=== PATIENT | female | born 1980 | race Caucasian/White ===

== ENCOUNTER 2017-11-07 10:10 | Emergency (ER) | payer OTHER ==
[2017-11-07] MEDS ORDERED: ATIVAN1 M1 PO (12:35)
--- NOTE | 2017-11-07 12:36 | ED GENERAL ADULT ---
History of Present Illness General Chief Complaint: General Adult Stated Complaint: MEDICATION REFILL Source: patient Exam Limitations: no limitations Vital Signs & Intake/Output Vital Signs & Intake/Output Vital Signs Date Time Temp Pulse Resp B/P B/P Pulse O2 O2 Flow FiO2 Mean Ox Delivery Rate 11/07 1023 96.1 103 20 145/94 97 Room Air Allergies Uncoded Allergies: HORMONES (UNKNOWN 11/07/17) STEROIDS (UNKNOWN 11/07/17) Reconcile Medications LORazepam (Ativan) 1 MG TAB 1 TAB PO BID anxiety Triage Note: PT TO ED FOR MED REFILL OF KLONOPIN. Triage Nurses Notes Reviewed? yes Onset: Abrupt (1) Duration: day(s): (1) Timing: single episode today Injury Environment: home Severity: mild, moderate Severity Numbers: 6 No Modifying Factors: none : No Patient currently breastfeeds: No HPI: 37-year-old female history of anxiety depression and IBS presents for evaluation of a medication refill. Patient reports that she has had worsening anxiety and insomnia over the past several weeks. She is prescribed Klonopin which she normally takes 4 times a day 1 mg. She states that over the past several days she has taken more than her prescribed dose causing her to run out. She reports she is not due for refill until this coming Tuesday. She is concerned about withdrawal symptoms and seizures. She denies any drug or alcohol use. Past History Travel History Traveled to [place] past 21 day No Medical History Any Pertinent Medical History? see below for history Gastrointestinal: irritable bowel syndrome, stomach issues Psychiatric: anxiety, depression Surgical History Surgical History: non-contributory Psychosocial History What is your primary language Maltese Tobacco Use: Current Daily Use Daily Tobacco Use Amount/Type: => 5 Cigarettes daily ETOH Use: denies use Illicit Drug Use: marijuana Family History Hx Contributory? No Review of Systems Review of Systems Constitutional: Reports: no symptoms. EENTM: Reports: no symptoms. Respiratory: Reports: no symptoms. Cardiovascular: Reports: no symptoms. GI: Reports: no symptoms. Genitourinary: Reports: no symptoms. Musculoskeletal: Reports: no symptoms. Skin: Reports: no symptoms. Neurological/Psychological: Reports: see HPI, anxiety. Hematologic/Endocrine: Reports: no symptoms. Immunologic/Allergic: Reports: no symptoms. All Other Systems: Reviewed and Negative Physical Exam Physical Exam General Appearance: well developed/nourished, no apparent distress, alert, awake Head: atraumatic, normal appearance Eyes: Bilateral: normal appearance, PERRL, EOMI. Ears, Nose, Throat: hearing grossly normal Neck: normal inspection, supple, full range of motion Respiratory: normal breath sounds, chest non-tender, no respiratory distress, lungs clear Cardiovascular: regular rate/rhythm, normal peripheral pulses Peripheral Pulses: 2+ radial (R), 2+ radial (L) Gastrointestinal: soft, non-tender Back: normal inspection, normal range of motion Extremities: normal inspection, normal range of motion, no edema Neurologic/Psych: no motor/sensory deficits, awake, alert, oriented x 3, normal gait, normal mood/affect Skin: intact, normal color, warm/dry Core Measures ACS in differential dx? No CVA/TIA Diagnosis: No Sepsis Present: No Sepsis Focused Exam Completed? No Progress Differential Diagnoses I considered the following diagnoses in my evaluation of the patient: [ Medication refill, benzodiazepine use disorder, drug seeking behavior, panic disorder] Plan of Care: Patient is here for evaluation of a medication refill. She reports that she ran out of her Klonopin yesterday and she is concerned about withdrawal symptoms. She does admit to taking more than her prescribed dose due to increasing anxiety and insomnia. She with her doctor this coming Tuesday for another refill. A review of CT PNP does indicate patient should still have been left over. Patient will be given 5 1 mg Ativan tablets to prevent withdrawal symptoms. Advised if she cannot get controlled substances in the emergency department. Advised to follow-up with her psychiatrist. Discussed return precautions patient agrees with plan Initial ED EKG: none Departure Departure Disposition: HOME OR SELF CARE Condition: Stable Clinical Impression Primary Impression: Medication refill Referrals: Malick PLAZA,Pranay Pabon (PCP/Family) Additional Instructions: Follow-up with your doctor on Tuesday as scheduled. Ativan as directed. Return with any concerns. The emergency department will not continue to provide you with controlled substances Departure Forms: Customer Survey General Discharge Information Prescriptions: Current Visit Scripts LORazepam (Ativan) 1 TAB PO BID #5 TAB Critical Care Note Critical Care Note Critical Care Time: non-applicable
[2017-11-07 12:39] VITALS: BP 140/80
== END 2017-11-07 12:38 ==
LOC: ERH 10:10
DX: Z76.0 Encounter for issue of repeat prescription (principal)
CPT/HCPCS: 99281